=== PATIENT | male | born 1945 | race Caucasian/White ===

== ENCOUNTER 2018-04-15 12:22 | Observation (INO) | payer MEDICARE ==
[2018-04-15] MEDS ORDERED: Acetaminophen TAB* 325 MG PO ONE (14:52)
[2018-04-15] MEDS ORDERED: NS 0.9% 1000 ML* 2,000 ML IV ONE (14:52)
--- NOTE | 2018-04-15 15:09 | ED ---
HPI Febrile Illness - HPI Summary HPI Summary: A 73 y/o male presents to the ED c/o fever reaching 4/10 in severity. In the ED room, the patient has a pulse of 114 BPM and O2 saturation of 93%. As per triage , "Pt stated that he has a cough for a couple of weeks and now he has a fever and his arms hurt and sometimes he is dizzy. Fever started this AM. Pt being treated for chronic right shoulder pain". The patient does not have hearing aids in, so his will speak on his behalf. She stated that the patient had a fever of 104 this morning, however, when he arrived at [facility] ED it was not as nearly as high. The patient did take his regular medications and morning including Tylenol. She stated that he was coughing quite a bit, he denies any abdominal pain, urinary symptoms (sees Dr. Castro for issues with urination), headache, but does have slight neck pain. Additionally, he complains more of his shoulder and hip pain coupled with generalized body aches. Patient has known murmur and has no history with CHF. Home Medications Medication Instructions Recorded Confirmed Type Maxair Autohaler 2 puff PO ONCE PRN 11/01/12 01/09/18 History Nasal Wash (NF) [Alkalol (NF)] 1 dose NASAL BID 11/01/12 01/09/18 History Trazodone HCl 100 mg PO BEDTIME 11/01/12 01/09/18 History metFORMIN* [Glucophage*] 1,000 mg PO BID 11/01/12 01/09/18 History ALPRAZolam TAB* [Xanax TAB*] 0.5 mg PO BEDTIME 01/09/18 01/09/18 History Aspirin 81 mg CHEW TAB* [Aspirin 81 mg PO DAILY 01/09/18 01/09/18 History Low Dose TAB*] Atorvastatin* [Lipitor*] 20 mg PO QPM 01/09/18 01/09/18 History Biotin 5,000 mcg PO .EVERY OTHER DAY 01/09/18 01/09/18 History BuPROPion XL* [Bupropion XL*] 300 mg PO DAILY 01/09/18 01/09/18 History Chlorthalidone TAB* [Hygroton TAB*] 50 mg PO DAILY 01/09/18 01/09/18 History Finasteride TAB* [Proscar TAB*] 5 mg PO DAILY 01/09/18 01/09/18 History Flaxseed Oil [Blair-3 Flaxseed Oil] 1,000 mg PO DAILY 01/09/18 01/09/18 History Insulin Glargine,Hum.rec.anlog 16 units SUBCUT DAILY 01/09/18 01/09/18 History [Lantus Solostar 5x3 ML PENS] Lisinopril 40 mg PO DAILY 01/09/18 01/09/18 History Melatonin/Pyridoxine HCl (B6) 1 tab PO BEDTIME 01/09/18 01/09/18 History [Melatonin] Multivitamin For Him 50+ 1 tab PO DAILY 01/09/18 01/09/18 History Oxybutynin Chloride [Oxybutynin 10 mg PO DAILY 01/09/18 01/09/18 History Chloride ER] Terazosin HCl 2 mg PO DAILY 01/09/18 01/09/18 History - History of Current Complaint Chief Complaint: EDFever Time Seen by Provider: 04/15/18 14:50 Hx Obtained From: Patient, Family/[employer] - Hx From Patient Unobtainable Due To: Other - DO NOT HAVE HEARING AIDS IN. Onset/Duration: Started Hours Ago, Still Present Timing: Constant, Lasting Hours Initial Severity: Moderate Current Severity: Moderate Pain Intensity: 4 Pain Scale Used: 0-10 Numeric Aggravating Factors: Nothing Alleviating Factors: OTC Medicine - TYLENOL Associated Signs and Symptoms: Cough, Myalgia - BODY ACHES, Stiff Neck - SLIGHT - Allergy/Home Medications Allergies/Adverse Reactions: Allergies Allergy/AdvReac Type Severity Reaction Status Date / Time ascorbic acid Allergy Unknown Verified 04/15/18 12:34 Reaction Details Corticosteroids Allergy Unknown Verified 04/15/18 12:34 (Glucocorticoids) Reaction Details folic acid Allergy Unknown Verified 04/15/18 12:34 Reaction Details meperidine [From Demerol] Allergy Hallucinati Verified 04/15/18 12:34 ons niacin Allergy hepatitis Verified 04/15/18 12:34 symptoms pantothenic acid Allergy Unknown Verified 04/15/18 12:34 Reaction Details D-biotin Allergy Unknown Uncoded 04/15/18 12:34 Reaction Details Home Medications: Home Medications Bupropion HCl Sr 150 mg PO DAILY 04/15/18 [History Confirmed 04/15/18] Iron 22 mg PO DAILY 04/15/18 [History Confirmed 04/15/18] Myrbetriq (NF) 25 mg PO DAILY 04/15/18 [History Confirmed 04/15/18] Omeprazole 20 mg PO DAILY 04/15/18 [History Confirmed 04/15/18] ZyrTEC 10 MG TAB* 10 mg PO DAILY 04/15/18 [History Confirmed 04/15/18] Magnesium 04/16/18 [History] PMH/Surg Hx/FS Hx/Imm Hx Endocrine/Hematology History: Reports: Hx Diabetes Denies: Hx Sickle Cell Disease Cardiovascular History: Reports: Hx Hypertension Denies: Hx Pacemaker/ICD, Other Cardiovascular Problems/Disorders Respiratory History: Reports: Hx Asthma - SLIGHT Denies: Other Respiratory Problems/Disorders History: Denies: Other Problems/Disorders Musculoskeletal History: Denies: Other Musculoskeletal History Sensory History: Reports: Hx Contacts or Glasses - GLASSES Denies: Hx Cataracts, Hx Glaucoma, Hx Hearing Aid Opthamlomology History: Reports: Hx Contacts or Glasses - GLASSES Denies: Hx Cataracts, Hx Glaucoma Psychiatric History: Reports: Hx Anxiety, Hx Depression, Hx Panic Disorder - TAKES MEDICATION FOR ANXIETY - Cancer History Hx Chemotherapy: No - Surgical History Surgery Procedure, Year, and Place: CYSTOSCOPY RT URETERAL STENT,[facility], RT SHOULDER RCT REPAIR [facility], LEFT HYDROCELECTOMY,[facility] Hx Anesthesia Reactions: No Infectious Disease History: No Infectious Disease History: Denies: Traveled Outside the [place] in Last 30 Days - Family History Known Family History: Negative: Blood Disorder - Social History Alcohol Use: None Substance Use Type: Reports: None Smoking Status (MU): Never Smoked Tobacco Review of Systems Positive: Fever Positive: Cough Negative: Abdominal Pain Positive: no symptoms reported Positive: Myalgia - BODY ACHES, Other - POSITIVE: SHOULDER PAIN AND HIP PAIN AND SLIGHT NECK PAIN Neurological: Other - POSITIVE: DIZZINES Negative: Headache All Other Systems Reviewed And Are Negative: Yes Physical Exam - Summary Physical Exam Summary: GENERAL: Patient is a well-developed and nourished male who is lying comfortable in the stretcher. Patient is not in any acute respiratory distress. HEAD AND FACE: Normocephalic EYES: PERRLA, EOMI x 2. EARS: Hearing grossly intact. MOUTH: Oropharynx within normal limits. Dry mucous membranes, NECK: Supple, trachea is midline, no adenopathy, no JVD, no carotid bruit. CHEST: Symmetric, no tenderness at palpation LUNGS: Clear to auscultation bilaterally. No wheezing or crackles. CVS: tachycardia with murmur present, S1 and S2 present, ABDOMEN: Soft, non-tender. Bowel sounds are normal. No abdominal abnormal pulsations. EXTREMITIES: Full ROM in all major joints, no edema, no cyanosis or clubbing. NEURO: Alert and oriented x 3. No acute neurological deficits. Speech is normal and follows commands. SKIN: Dry and warm Triage Information Reviewed: Yes Vital Signs On Initial Exam: Initial Vitals Temp Pulse Resp BP Pulse Ox 100.4 F 119 20 122/78 95 04/15/18 12:30 04/15/18 12:30 04/15/18 12:30 04/15/18 12:30 04/15/18 12:30 Vital Signs Reviewed: Yes Diagnostics - Vital Signs Vital Signs Temp Pulse Resp BP Pulse Ox 04/15/18 14:17 100.8 F 100 18 135/71 98 04/15/18 12:30 100.4 F 119 20 122/78 95 - Laboratory Result Diagrams: 04/16/18 05:38 04/15/18 15:08 Lab Statement: Any lab studies that have been ordered have been reviewed, and results considered in the medical decision making process. - Radiology CXR Radiology Interpretation Completed By: Radiologist Summary of Radiographic Findings: No active cardiopulmonary disease is noted. ED PHYSICIAN REVIEWED THIS RADIOLOGY REPORT. - EKG 1514 Cardiac Rate: Tachycardia - 114 BPM EKG Rhythm: Sinus Tachycardia - 114 BPM Summary of EKG Findings: RIGHT AXIS DEVIATION. Re-Evaluation - Re-Evaluation First Eval Re-Evaluation Time: 16:45 Change: Unchanged Comment: DISCUSSED RESULTS AND PLAN WITH PATIENT. Course/Dx - Course Course Of Treatment: A 73 y/o male presents to the ED c/o fever reaching 4/10 in severity. In the ED room, the patient has a pulse of 114 BPM and O2 saturation of 93%. The patient does not have hearing aids in, so his will speak on his behalf. She stated that the patient had a fever of 104 this morning , however, when he arrived at [facility] ED it was not as nearly as high. The patient did take his regular medications and morning including Tylenol. She stated that he was coughing quite a bit, he denies any abdominal pain, urinary symptoms ( sees Dr. Castro for issues with urination), headache, but does have slight neck pain. Additionally, he complains more of his shoulder and hip pain coupled with generalized body aches. Physical examination findings significant for tachycardia with murmur present, dry mucous membranes. An EKG revealed sinus tachycardia at a rate of 114 BPM, right axis deviation. A CXR revealed no active cardiopulmonary disease. Hematology, coagulation, Chemistry, and serology screens were done. No significant laboratory abnormalities were found except elevated glucose at a value of 137 mg/dL, low sodium and chloride at values of 134 mg/dL and 97 mg/dL, respectively. Troponin I was 0.01. In the ED course, the patient received Tylenol and IV fluids. Patient care was discussed with hospitalst, Dr. Susan Hernandez, who accepts patient for admission. Case discussed with hospitalist. I discussed results with patient. The patient agrees with this plan. Patient will be admitted with a diagnosis of pyelonephritis. Patient is agreeable with this plan. - Diagnoses Provider Diagnoses: Pyelonephritis - Provider Notifications Discussed Care Of Patient With: Susan Hernandez Time Discussed With Above Provider: 16:38 Instructed by Provider To: Other - ACCEPTS PATIENT FOR ADMISSION. Discharge - Sign-Out/Discharge Documenting (check all that apply): Patient Departure - ADMIT, Sign-Out Patient - ANGELINA Signing out patient TO: Susan Hernandez Receiving patient FROM: Payam Ding - Discharge Plan Condition: Improved Disposition: ADMITTED TO [facility] - Billing Disposition and Condition Condition: IMPROVED Disposition: Admitted to [facility] - Attestation Statements Document Initiated by Abi: Yes Documenting Scribe: Brayden Swan Provider For Whom Abi is Documenting (Include Credential): Payam Ding MD Scribe Attestation: Brayden Salcedo scribed for Payam Ding MD on 04/17/18 at 0726. Scribe Documentation Reviewed: Yes Provider Attestation: The documentation as recorded by the Brayden bonner accurately reflects the service I personally performed and the decisions made by me, Payam Ding MD Status of Scribe Document: Viewed
[2018-04-15 15:50] LABS: Hematocrit 37 % (42-52); Hemoglobin 12.3 g/dl (14.0-18.0); Mean Corpuscular HGB Conc 33 g/dl (31-36); Mean Corpuscular Hemoglobin 28 pg (27-31); Mean Corpuscular Volume 86 fL (80-94); Platelet Count 184 10^3/ul (150-450); Red Blood Count 4.33 10^6/ul (4.00-5.40); Red Cell Distribution Width 14 % (10.5-15); White Blood Count 16.3 10^3/ul (3.5-10.8)
[2018-04-15 15:58] LABS: Activated Partial Thrombo Time 29.7 seconds (26.0-36.3); INR 1.02 (0.77-1.02)
[2018-04-15 16:05] LABS: Albumin/Globulin Ratio 1.3 (1-3); BUN/Creatinine Ratio 29.5 (8-20); C Reactive Protein 24.77 mg/L (<8.01); Calcium 9.2 mg/dL (8.6-10.3); EGFR Non-African American 97.8 (>60); Potassium 3.7 mmol/L (3.5-5.0); Total Bilirubin 0.6 mg/dL (0.2-1.0)
[2018-04-15 16:13] LABS: ABS Basophils 0 10^3/ul (0-0.2); ABS Eosinophils 0 10^3/ul (0-0.6); ABS Lymphocytes 0.7 10^3/ul (1.0-4.8); ABS Monocytes 1.6 10^3/ul (0-0.8); ABS Neutrophils 13.9 10^3/ul (1.5-7.7); ABS Nucleated RBC 0 10^3/ul; Eosinophil % 0.1 %; Lymphocyte % 4.6 %; Nucleated Red Blood Cells % 0
[2018-04-15 16:40] LABS: Urine Appearance Cloudy; Urine Bacteria 1+ (Absent); Urine Bilirubin Negative (Negative); Urine Blood 1+ (Negative); Urine Color Yellow; Urine Glucose Negative (Negative); Urine Ketones 1+ (Negative); Urine Nitrite Positive (Negative); Urine Protein Negative (Negative); Urine Red Blood Cell 3+(>10/hpf) (Absent); Urine Specific Gravity 1.018 (1.010-1.030); Urine Urobilinogen Negative (Negative); Urine White Blood Cell 3+(>20/hpf) (Absent)
[2018-04-15] MEDS ORDERED: cefTRIAXone(*) 1 GM in NS 0.9% 50 ML* 50 ML IVPB ONE (16:40)
[2018-04-15] MEDS ORDERED: Butalb/Acetamin/Caff TAB* 1 TAB PO ONE (17:35)
[2018-04-15] MEDS ORDERED: Dextrose 50% Syringe 50 ML* 25 GM/50 ML SYRINGE IV PUSH PRN (17:37)
[2018-04-15] MEDS ORDERED: Acetaminophen TAB* 325 MG PO PRN (17:39)
[2018-04-15] MEDS ORDERED: Atorvastatin* 20 MG TAB PO SCH (18:00)
[2018-04-15] MEDS ORDERED: NS 0.9% 1000 ML* 1,000 ML IV SCH (18:00)
[2018-04-15] MEDS: Heparin VIAL(*) 5000 UNITS/ML VIAL (FIVE THOUSAND) SUBCUT SCH (20:50)
[2018-04-15] MEDS ORDERED: traZODone TAB* 50 MG TAB PO SCH (21:00)
[2018-04-15] MEDS ORDERED: Insulin GLARGINE(*) 1 UNITS UNIT SUBCUT SCH (21:00)
--- NOTE | 2018-04-15 23:33 | HP ---
CC: Dr. Lezama; Dr. Braun * HISTORY AND PHYSICAL: DATE OF ADMISSION: 04/15/18 ATTENDING PHYSICIAN: Dr. Susan Loredo * (dictation provided by Nan Muñiz NP ). CHIEF COMPLAINT: Fever and feeling generally ill. HISTORY OF PRESENT ILLNESS: Mr. Diaz is a 73-year-old male with past medical history of insulin-dependent diabetes, hypertension, hyperlipidemia, and BPH, who presents today to the hospital with concern for fever and generalized malaise. Mr. Diaz states he has been feeling unwell for about 2 days. He first mentioned this to his today. He described a fever and generalized malaise. He initially reported cough, but denies though to me. He has reported some slight burning with urination. He has constant urinary frequency secondary to BPH. He follows closely with Dr. Braun and states he saw them as recently as a few weeks ago. The patient denies chest pain, shortness of breath, nausea, vomiting, diarrhea, abdominal pain. The patient's notes that it was difficult to get him here to the emergency room today as he had become confused. In the emergency room, Mr. Diaz had labs, which showed a leukocytosis of 16.3, fevers up to 101.6. BUN and creatinine are normal. CRP is 24. His urinalysis is positive for 3+ leukocyte esterase, positive nitrites, and positive bacteria. His chest x-ray shows no acute process. PAST MEDICAL HISTORY: 1. Type 2 diabetes, insulin dependent. 2. Chronic anemia. 3. Hypertension. 4. Hyperlipidemia. 5. BPH. MEDICATIONS: 1. Zyrtec 10 mg p.o. daily. 2. Iron 22 mg p.o. daily. 3. Myrbetriq 25 mg p.o. daily. 4. Flaxseed oil 1000 mg p.o. daily. 5. Chlorthalidone 25 mg p.o. daily. 6. Biotin 5000 mcg p.o. every other day. 7. Omeprazole 20 mg p.o. daily. 8. Bupropion SR 150 mg p.o. daily. 9. Atorvastatin 20 mg p.o. q.p.m. 10. Lantus insulin 20 units subcutaneously at bedtime. 11. Finasteride 5 mg p.o. daily. 12. Melatonin 1 tab p.o. at bedtime. 13. Lisinopril 40 mg p.o. daily. 14. Oxybutynin 15 mg p.o. daily. 15. Multivitamin with mineral 1 tab p.o. daily. 16. Metformin 1000 mg p.o. b.i.d. 17. Trazodone 100 mg p.o. daily or bedtime. ALLERGIES: ASCORBIC ACID, CORTICOSTEROIDS, FOLIC ACID, MEPERIDINE, NIACIN, PANTOTHENIC ACID, and D-BIOTIN. FAMILY HISTORY: The patient reports his mother of old age. Dad related to heart attack at age 66. SOCIAL HISTORY: The patient has a very distant history of smoking. He reports no alcohol or drug use. He lives with his , who is his healthcare proxy. REVIEW OF SYSTEMS: A 14-point review of systems was completed with Mr. Diaz and all those not mentioned above were negative. The patient does report right shoulder pain, but this has been a chronic issue for months. PHYSICAL EXAMINATION GENERAL: Mr. Diaz is lying in the bed. He is in no acute distress. VITAL SIGNS: Temperature of peak today in the emergency room is 101.6, it is currently 100.8 with a heart rate of 102; respiratory rate of 16; O2 saturation 94% on room air; blood pressure 126/72. LUNGS: Clear to auscultation bilaterally with no accessory muscle use and good aeration. HEART: S1, S2. No murmur, rub or gallop and regular. ABDOMEN: Soft and nontender with bowel sounds positive x4. The patient has pain to palpation in the lower abdomen and states when I do that, he feels that "he has to go pee." EXTREMITIES: No cyanosis or edema. NEURO: He is alert. He is oriented x3. He moves all extremities equally. There is no facial asymmetry or focal weakness. Extraocular movements are intact. SKIN: Intact. DIAGNOSTIC STUDIES/LAB DATA: WBC 16.3, hemoglobin 12.3, hematocrit 37, platelet count 184, INR 1.02. Sodium 134, potassium 3.7, chloride 97, serum bicarbonate 29, BUN 23, creatinine 0.78, glucose 137, lactic acid 1.0, CRP 24.77. Troponin 0.01. Urine shows positive nitrites, 3+ leukocyte esterase, and positive bacteria. Flu swab is negative. There is no active cardiopulmonary disease. ASSESSMENT AND PLAN: Mr. Diaz is a 73-year-old male with a past medical history of insulin-dependent type 2 diabetes mellitus, BPH, hypertension, hyperlipidemia, who presents to the hospital with concern for fever and malaise , found to have sepsis with urinary tract infection. Our plans are for inpatient admission as I expect his length of stay to be greater than 2 days for the followin. Sepsis secondary to urinary tract infection. The patient's lactic acid is normal and blood cultures have been sent. Plan to treat with intravenous antibiotics for sepsis. Plan for ceftriaxone until urine cultures and sensitivities can be reviewed. The patient has received 2 L of IV fluid in the ED. Plan to continue IV fluids at 125 mL per hour due to the patient's fever. 2. Type 2 diabetes. Plan to continue with home Lantus and have lispro sliding scale with meals and consistent carbohydrate diet. 3. Hypertension. Plan to hold his chlorthalidone and lisinopril during the acute illness. 4. Depression and anxiety. Continue bupropion. 5. Hyperlipidemia. Continue atorvastatin. 6. Code status. DNR/DNI. form was completed with him and his at the bedside. 7. Disposition: To medical floor. TIME SPENT: Approximately 60 minutes was spent on the admission of this patient , more than half of the time spent with the patient at the bedside reviewing the events leading up to this hospitalization, performing the physical examination, and reviewing my plan of care. NAN MUÑIZ NP [id number]/[facility] #: [id number] MYRIAM
[2018-04-16] MEDS ORDERED: Melatonin 3 MG TAB PO SCH (01:00)
[2018-04-16] MEDS: Heparin VIAL(*) 5000 UNITS/ML VIAL (FIVE THOUSAND) SUBCUT SCH (05:36)
[2018-04-16 06:05] LABS: ABS Basophils 0 10^3/ul (0-0.2); ABS Eosinophils 0 10^3/ul (0-0.6); ABS Lymphocytes 1.2 10^3/ul (1.0-4.8); ABS Monocytes 1.4 10^3/ul (0-0.8); ABS Neutrophils 11.1 10^3/ul (1.5-7.7); ABS Nucleated RBC 0 10^3/ul; Eosinophil % 0.3 %; Hematocrit 32 % (42-52); Hemoglobin 10.5 g/dl (14.0-18.0); Lymphocyte % 9.1 %; Mean Corpuscular HGB Conc 33 g/dl (31-36); Mean Corpuscular Hemoglobin 29 pg (27-31); Mean Corpuscular Volume 86 fL (80-94); Mean Platelet Volume 8.1 fL (7.4-10.4); Nucleated Red Blood Cells % 0; Platelet Count 148 10^3/ul (150-450); Red Blood Count 3.67 10^6/ul (4.00-5.40); Red Cell Distribution Width 14 % (10.5-15); White Blood Count 13.8 10^3/ul (3.5-10.8)
[2018-04-16] MEDS: Insulin LISPRO* 1 UNITS UNIT SUBCUT SCH ×2 (08:52→13:34)
[2018-04-16] MEDS ORDERED: Finasteride TAB* 5 MG PO SCH (09:00)
[2018-04-16] MEDS ORDERED: buPROPion SR TAB.SR* 150 MG PO SCH (09:00)
[2018-04-16] MEDS ORDERED: Omeprazole CAP* 20 MG PO SCH (09:00)
[2018-04-16] MEDS ORDERED: Magnesium Oxide TAB* 400 MG PO SCH (10:00)
[2018-04-16] MEDS ORDERED: Oxybutynin XL TAB* 5 MG PO SCH (10:00)
[2018-04-16] MEDS ORDERED: Levofloxacin TAB* 750 MG PO ONE (12:42)
[2018-04-16 12:43] VITALS: BP 139/70
[2018-04-16] MEDS ORDERED: cefTRIAXone(*) 1 GM in NS 0.9% 50 ML* 50 ML IVPB SCH (17:00)
--- NOTE | 2018-04-16 21:25 | DS ---
CC: Dr. Fede Lezama * DISCHARGE SUMMARY: DATE OF ADMISSION: 04/15/18. DATE OF DISCHARGE: 04/16/18. PRIMARY CARE PROVIDER: Dr. Fede Lezama. UROLOGIST: Dr. Castro. ATTENDING PHYSICIAN: Dr. Diamante Christianson * (dictated by Kathy Santos NP). PRIMARY DIAGNOSES: 1. Urinary tract infection. 2. Sepsis. SECONDARY DIAGNOSES: 1. Diabetes mellitus type 2. 2. Hypertension. 3. Benign prostatic hyperplasia. 4. Hyperlipidemia. 5. Chronic anemia. STUDIES WHILE IN THE HOSPITAL: 1. Chest x-ray on 04/15/18, reads as no active cardiopulmonary disease. HISTORY OF PRESENT ILLNESS AND HOSPITAL COURSE: Mr. Diaz is a 73-year-old male with past medical history of diabetes, anemia, hypertension, hyperlipidemia , and BPH, who presented to the emergency room on 04/15/18 with complaints of fever and malaise. Please see the history and physical by Nan Muñiz NP, for a complete summary of the events leading up to this hospitalization. In short, the patient had not been feeling well for 2 days. He was noted to have a fever and generalized malaise and had some dysuria. He does follow with Urology due to BPH. The patient's noted that he appeared to be confused and she had difficulty getting him to the emergency room. In the emergency room, he was noted to have a white blood count of 16.3, fever up to 101.6, and tachycardia up to 115, indicating sepsis. The source of sepsis was noted to be a urinary tract infection. He had a urinalysis, which was positive for nitrites, leukocyte esterase, wbc's, and bacteria. He was admitted by the hospitalist service for sepsis secondary to urinary tract infection. The patient received appropriate IV fluids for sepsis and was placed on ceftriaxone. The patient had an uneventful night. His confusion resolved. He has had some elevated blood sugars this morning, though he notes that he has not been getting as much insulin here as he would normally take at home. White blood count today is improved to 13.8 and tachycardia has resolved. The patient reports feeling well. He and his are adamant that he be discharged today as his symptoms are resolved despite having a fever of 101.3 at 2300 last night. He has responded well to antibiotics, and though would ideally spend another night in the hospital, he is stable to continue oral antibiotic therapy at home. As of the time of discharge, urine culture results were not available, though at the time of this dictation, the preliminary urine culture results are showing E. Coli with greater than 100,000 colonies. Mr. Diaz is stable for discharge. Vital signs are as follows: Temp 98.4, heart rate 83, respiratory rate 16, oxygen saturation 97% on room air, blood pressure 139/70. DISCHARGE MEDICATIONS: New medication: 1. Levofloxacin 750 mg p.o. daily x9 days. Continued medications: 1. Atorvastatin 20 mg p.o. daily. 2. Biotin 5000 mcg p.o. every other day. 3. Bupropion 150 mg p.o. daily. 4. Chlorthalidone 25 mg p.o. daily. 5. Finasteride 5 mg p.o. daily. 6. Flaxseed oil 1000 mg p.o. daily. 7. Glargine 20 units subcu at bedtime. 8. Lispro sliding scale subcu (the patient may resume his usual sliding scale). 9. Iron 22 mg p.o. daily. 10. Lisinopril 40 mg p.o. daily. 11. Magnesium 1 tab p.o. daily. 12. Melatonin 1 tab p.o. at bedtime. 13. Metformin 1000 mcg p.o. b.i.d. 14. Multivitamin 1 tab p.o. daily. 15. Myrbetriq 25 mg p.o. daily. 16. Omeprazole 20 mg p.o. daily. 17. Oxybutynin 50 mg daily. 18. Trazodone 100 mg p.o. at bedtime. 19. Zyrtec 10 mg p.o. daily. DISCHARGE PLAN: Mr. Diaz will be discharged home. Activity will be as tolerated. Diet will be diabetic. Medications are noted above. At the time of discharge, urine culture had not resulted and so the patient was placed on Levaquin to ensure adequate coverage of potential organisms. He received his first dose here and will need to complete another 9-day course at home. He may resume his other usual medications. He has been advised to follow up closely with his primary care provider. I have advised him and his that he should ideally follow up at the end of this week. They will follow up with his urologist as needed. The patient has been advised to return to the emergency room or nearest hospital for any worsening of symptoms, shortness of breath, lightheadedness, dizziness, chest discomfort, high fevers, chills, night sweats , loss of consciousness, or any other worrisome signs or symptoms. This is a summarized report of a complex medical history and hospital stay. For further details, please see the entire medical record. TIME SPENT: Approximately 40 minutes were spent on this discharge. KATHY SANTOS BOARDMARKER [id number]/[facility] #: [id number] MYRIAM
== END 2018-04-16 13:50 | disposition home or self-care (01) ==
LOC: ED 12:22 → INTOOBSV 17:33 → MED 17:33
PROVIDERS: ADMIT Internal Medicine; ATTEND Hospitalist
DX: A41.9 Sepsis, unspecified organism (principal); N39.0 Urinary tract infection, site not specified; E11.9 Type 2 diabetes mellitus without complications; I10 Essential (primary) hypertension; N40.0 Benign prostatic hyperplasia without lower urinary tract symptoms; E78.5 Hyperlipidemia, unspecified; D64.9 Anemia, unspecified; R50.9 Fever, unspecified; Z79.82 Long term (current) use of aspirin; R05 Cough
CPT/HCPCS: 36415; 71046; 80053; 81003; 81015; 82550; 83605; 83880; 84484; 85025; 85610; 85730; 86140; 87040; 87077; 87086; 87186; 96361; 96365; 96372; 99284; A9270-GY; G0378; J0696; J1644

== ENCOUNTER 2020-01-31 09:41 | Observation (INO) ==
[2020-01-31] MEDS ORDERED: NS 0.9% 1000 ml BAG 1,000 ML IV ONE (09:46)
[2020-01-31] MEDS ORDERED: Iodixanol (CONTRAST) 320 MG/ML 100 ML SDV IV ONE (10:06)
[2020-01-31 10:41] LABS: ABS Eosinophils 0.2 10^3/ul (0-0.6); ABS Lymphocytes 1.1 10^3/ul (1.0-4.8); ABS Monocytes 0.6 10^3/ul (0-0.8); ABS Neutrophils 4.1 10^3/ul (1.5-7.7); Eosinophil % 4.1 %; Hematocrit 38 % (42-52); Hemoglobin 12.8 g/dL (14.0-18.0); Lymphocyte % 17.7 %; Mean Corpuscular HGB Conc 34 g/dL (31-36); Mean Corpuscular Hemoglobin 30 pg (27-31); Mean Corpuscular Volume 88 fL (80-94); Mean Platelet Volume 8.3 fL (7.4-10.4); Platelet Count 157 10^3/uL (150-450); Red Blood Count 4.28 10^6 /uL (4.18-5.48); Red Cell Distribution Width 13 % (10-15); White Blood Count 6.1 10^3/uL (3.5-10.8)
[2020-01-31 10:56] LABS: Activated Partial Thrombo Time 25.8 seconds (26.0-38.0); INR 0.94 (0.82-1.09)
[2020-01-31 11:14] LABS: ALT 21 U/L (7-52); Albumin 3.7 g/dL (3.2-5.2); Albumin/Globulin Ratio 1.4 (1-3); Alkaline Phosphatase 56 U/L (34-104); BUN/Creatinine Ratio 39.7 (8-20); Blood Urea Nitrogen 29 mg/dL (6-24); CO2 Carbon Dioxide 26 mmol/L (22-32); Calcium 9.1 mg/dL (8.6-10.3); Chloride 104 mmol/L (101-111); Cholesterol 94 mg/dL; EGFR African American 127.4 (>60); EGFR Non-African American 105.3 (>60); Globulin 2.7 g/dL (2-4); Glucose 171 mg/dL (70-100); HDL Cholesterol 30.2 mg/dL; LDL Cholesterol 50 mg/dL; Sodium 137 mmol/L (135-145); Total Protein 6.4 g/dL (6.4-8.9); Triglycerides 67 mg/dL
[2020-01-31 11:15] LABS: Troponin I 0.01 ng/mL (<0.03)
[2020-01-31 11:38] LABS: Urine Appearance Clear; Urine Bilirubin Negative (Negative); Urine Blood Negative (Negative); Urine Color Yellow; Urine Glucose Negative (Negative); Urine Ketones Negative (Negative); Urine Nitrite Negative (Negative); Urine Protein Negative (Negative); Urine Urobilinogen Negative (Negative)
[2020-01-31 12:01] LABS: Anion Gap 7 mmol/L (2-11)
[2020-01-31] MEDS ORDERED: Ondansetron 4 mg VIAL 2 MG/ML 2 ml VIAL IV PRN (12:21)
[2020-01-31] MEDS ORDERED: Levalbuterol HFA INHALER MDI INH PRN (15:30)
[2020-01-31 19:22] LABS: Potassium Redraw 4.3 mmol/L (3.5-5.0)
[2020-01-31] MEDS: Heparin 5000 UNITS/ML 1 mL VIAL SUBCUT SCH (21:12)
[2020-02-01] MEDS: Heparin 5000 UNITS/ML 1 mL VIAL SUBCUT SCH ×2 (05:52→13:05)
[2020-02-01 06:35] LABS: ABS Eosinophils 0.3 10^3/ul (0-0.6); ABS Lymphocytes 1.4 10^3/ul (1.0-4.8); ABS Monocytes 0.6 10^3/ul (0-0.8); Eosinophil % 4.7 %; Hematocrit 36 % (42-52); Hemoglobin 12.3 g/dL (14.0-18.0); Lymphocyte % 21.8 %; Mean Corpuscular HGB Conc 34 g/dL (31-36); Mean Corpuscular Hemoglobin 30 pg (27-31); Mean Corpuscular Volume 88 fL (80-94); Mean Platelet Volume 7.9 fL (7.4-10.4); Platelet Count 171 10^3/uL (150-450); Red Blood Count 4.11 10^6 /uL (4.18-5.48); Red Cell Distribution Width 14 % (10-15); White Blood Count 6.2 10^3/uL (3.5-10.8)
[2020-02-01 06:42] LABS: BUN/Creatinine Ratio 26.8 (8-20); Calcium 8.8 mg/dL (8.6-10.3); EGFR African American 131.6 (>60); EGFR Non-African American 108.8 (>60)
[2020-02-01] MEDS ORDERED: Fluticasone NASAL SPRAY 50MCG 16 gm SPRAY BTL INTRANASAL SCH (09:00)
[2020-02-01] MEDS ORDERED: SPIRIVA Respimat (tiotropium) 2.5 mcg/inh Inhaler INH SCH (09:00)
[2020-02-01 17:32] VITALS: BP 119/57
== END 2020-02-01 15:00 | disposition home or self-care (01) ==
LOC: ED 09:41 → MEDTELE 09:41
PROVIDERS: ADMIT Hospitalist; ATTEND Internal Medicine

== ENCOUNTER 2024-05-19 05:50 | Observation (INO) ==
[~2024-05-19 05:50] MED LIST: NS 0.45% 1000 ml BAG 1,000 ML IV SCH; Naloxone 0.4 mg VIAL 0.4 mg/ml 1 ml VIAL IV PRN; Ondansetron 4 mg VIAL 2 MG/ML 2 ml VIAL IV PRN
[2024-05-19] MEDS ORDERED: Lidocaine 1% w EPI 1:200,000 SDV 30 ML VIAL ONE (06:00)
[2024-05-19] MEDS: Buffered Lidocaine 1% SYRIN 1 ml INTRADERM ONE (06:19)
[2024-05-19] MEDS ORDERED: ceFAZolin 2 GM PREMIX 2 GM/50 ML BAG ONE (06:21)
[2024-05-19] MEDS ORDERED: Tranexamic Acid 1 GM/100ML BAG 2,000 MG/200 ML BAG IV ONE (06:21)
[2024-05-19 06:27] LABS: Rapid COVID-19 Molecular Undetected (Undetected)
[2024-05-19] MEDS ORDERED: Midazolam 5 mg/5 ml VIAL 1 mg/ml 5 ml VIAL (5 mg) ONE (06:44)
[2024-05-19] MEDS ORDERED: Propofol 10 MG/ML 20 ML BTL ONE (06:44)
[2024-05-19] MEDS ORDERED: fentaNYL 100 mcg/2 ml 50 MCG/ML VIAL ONE ×3 (06:44→12:24)
[2024-05-19] MEDS ORDERED: Phenylephrine IV 10 MG/ML 1 ml VIAL ONE (06:44)
[2024-05-19] MEDS ORDERED: Dexamethasone IV 4 MG/ML VIAL 1 ml VIAL ONE (06:44)
[2024-05-19] MEDS ORDERED: Ondansetron 4 mg VIAL 2 MG/ML 2 ml VIAL ONE (06:44)
[2024-05-19] MEDS ORDERED: Rocuronium 50 mg VIAL 10 mg/ml 5 ml VIAL (50 mg) ONE ×3 (06:44→09:59)
[2024-05-19] MEDS ORDERED: Lidocaine 2% PF 5 ML VIAL ONE (06:44)
[2024-05-19] MEDS ORDERED: ROPIVACAINE 5 MG/ML 30 ML BTL (0.5%) ONE (06:45)
[2024-05-19] MEDS ORDERED: Vancomycin 1,000 MG VIAL ONE (06:47)
[2024-05-19] MEDS: Lactated Ringers 1000 ml BAG 1,000 ML IV SCH ×2 (06:48→15:58)
[2024-05-19] MEDS ORDERED: HYDROmorphone 0.5 MG/0.5 ML SYRINGE ONE (09:14)
[2024-05-19] MEDS ORDERED: Magnesium Hydroxide LIQ 30 ML UDC PO PRN (11:32)
[2024-05-19] MEDS ORDERED: Ondansetron 4 mg VIAL 2 MG/ML 2 ml VIAL IV PRN (11:32)
[2024-05-19] MEDS ORDERED: Ondansetron ODT 4 mg TAB 4 MG TAB PO PRN (11:32)
[2024-05-19] MEDS ORDERED: Lactulose 30 ml UDC PO PRN (11:32)
[2024-05-19] MEDS ORDERED: Dextrose 50% Syringe 50 ml 25 GM/50 ML SYRINGE IV PUSH PRN (11:54)
[2024-05-19] MEDS ORDERED: Levalbuterol HFA INHALER MDI INH PRN (11:54)
[2024-05-19] MEDS ORDERED: Triamcinolone 0.025% OINT 15 GM TUBE TOPICAL PRN (11:54)
[2024-05-19] MEDS: fentaNYL 100 mcg/2 ml 50 MCG/ML VIAL IV PRN (12:26)
[2024-05-19] MEDS: ceFAZolin 1 GM ADVAN 1 GM in NS 0.9% 50 ML 50 ML IVPB SCH (15:57)
[2024-05-19] MEDS: Magnesium Hydroxide LIQ 30 ML UDC PO SCH (21:35)
[2024-05-19] MEDS: Fluticasone NASAL SPRAY 50MCG 16 gm SPRAY BTL INTRANASAL SCH (21:35)
[2024-05-19] MEDS: Acetaminophen IV 1 GM/100ML 1,000 MG/100 ML BAG IV ONE (22:14)
[2024-05-20] MEDS: Morphine 2 MG/ML SYRINGE IV PRN (00:06)
[2024-05-20 06:00] LABS: Hematocrit 30.3 % (38-53); Hemoglobin 10.2 g/dL (13.2-16.3); Mean Platelet Volume 7.9 fL (7.5-11.2); Platelet Count 201 10^3/uL (150-450)
[2024-05-20 06:17] LABS: Calcium 8.5 mg/dL (8.6-10.3); Creatinine, Serum 0.78 mg/dL (0.67-1.17); Potassium 3.6 mmol/L (3.5-5.0); eGFR CKD-EPI 91.3 (>60)
[2024-05-20] MEDS: Cholecalciferol (VIT D3) 1,000 unit TAB PO SCH (08:07)
[2024-05-20] MEDS: SPIRIVA Respimat (tiotropium) 2.5 mcg/inh Inhaler INH SCH (09:12)
[2024-05-20 14:44] VITALS: BP 143/61
== END 2024-05-20 15:50 | disposition home or self-care (01) ==
LOC: SSU 05:50 → OR 05:50
PROVIDERS: ADMIT Orthopaedic Surgery; ATTEND Orthopaedic Surgery